=== PATIENT | female | born 1985 | race Caucasian/White ===

== ENCOUNTER 2019-06-28 18:56 | Inpatient (IN) | payer OTHER ==
[~2019-06-28] VITALS: Ht 165.1 cm; Wt 101.0 kg
[~2019-06-28 18:56] MED LIST: DEPO PROVERA; NO MEDS; OXYACE5T PO
[2019-06-28 21:36] LABS: BASOPHILS ABSOLUTE AUTO 0.08 K/mm3 (0.00-0.23); BASOPHILS PERCENT AUTO 1 % (0-2); EOSINOPHILS ABSOLUTE AUTO 0.24 K/mm3 (0.00-0.68); EOSINOPHILS PERCENT AUTO 2 % (0-6); Hematocrit 47.6 % (33.0-51.0); Hemoglobin 15.3 g/dL (11.5-16.0); IMMATURE GRAN ABSOLUTE AUTO 0.06 K/mm3 (0.00-0.10); IMMATURE GRAN PERCENT AUTO 1 % (0-1); LYMPHOCYTES ABSOLUTE AUTO 3.19 K/mm3 (0.84-5.20); LYMPHOCYTES PERCENT AUTO 27 % (21-46); MONOCYTES ABSOLUTE AUTO 0.75 K/mm3 (0.16-1.47); MONOCYTES PERCENT AUTO 6 % (4-13); Mean Corpuscular HGB 29.8 pg (26.0-34.0); Mean Corpuscular HGB Conc 32.1 g/dL (31.5-36.5); Mean Corpuscular Volume 93 fL (80-100); NEUTROPHILS ABSOLUTE AUTO 7.68 K/mm3 (1.96-9.15); NEUTROPHILS PERCENT AUTO 64 % (41-73); Platelet Count 264 K/mm3 (150-400); RDW Coefficient Variation 13.7 % (11.7-14.2); RDW Standard Deviation 47.3 fL (35.1-46.3); Red Blood Cell Count 5.14 M/mm3 (3.80-5.20)
[2019-06-28] MEDS ORDERED: IBUP800 PO (21:51)
[2019-06-28] MEDS ORDERED: CLIN300 PO (21:51)
[2019-06-28 21:52] LABS: Alanine Aminotransfer (ALT/SGP 149 U/L (12-78); Albumin, Blood 3.9 g/dL (3.4-5.0); Alk Phos 190 U/L (50-136); Anion Gap 6 mmol/L (6-16); Aspartate Aminotrans (AST/SGOT 104 U/L (12-37); Bilirubin, Total 0.5 mg/dL (0.1-1.0); Blood Urea Nitrogen 5 mg/dL (8-24); Bun/Creatinine Ratio 6.7 (12.0-20.0); CO2, Blood 27 mmol/L (21-32); Chloride, Blood 107 mmol/L (98-108); Creatinine, Blood 0.75 mg/dL (0.40-1.00); Globulin, Blood 3.8 g/dL (2.2-4.0); Glomerular Filtration Rate >60 (60-); Glucose, Blood 85 mg/dL (70-99); Sodium, Blood 140 mmol/L (136-145); Total Protein, Blood 7.7 g/dL (6.4-8.2)
[2019-06-29 05:08] LABS: BASOPHILS ABSOLUTE AUTO 0.05 K/mm3 (0.00-0.23); BASOPHILS PERCENT AUTO 1 % (0-2); EOSINOPHILS PERCENT AUTO 4 % (0-6); Hematocrit 40.1 % (33.0-51.0); Hemoglobin 12.8 g/dL (11.5-16.0); IMMATURE GRAN ABSOLUTE AUTO 0.03 K/mm3 (0.00-0.10); IMMATURE GRAN PERCENT AUTO 0 % (0-1); LYMPHOCYTES ABSOLUTE AUTO 3.17 K/mm3 (0.84-5.20); LYMPHOCYTES PERCENT AUTO 37 % (21-46); MONOCYTES ABSOLUTE AUTO 0.64 K/mm3 (0.16-1.47); MONOCYTES PERCENT AUTO 7 % (4-13); Mean Corpuscular HGB 29.8 pg (26.0-34.0); Mean Corpuscular HGB Conc 31.9 g/dL (31.5-36.5); Mean Corpuscular Volume 94 fL (80-100); NEUTROPHILS ABSOLUTE AUTO 4.47 K/mm3 (1.96-9.15); NEUTROPHILS PERCENT AUTO 52 % (41-73); Platelet Count 221 K/mm3 (150-400); RDW Standard Deviation 47.9 fL (35.1-46.3); Red Blood Cell Count 4.29 M/mm3 (3.80-5.20); White Blood Cell Count 8.66 K/mm3 (4.00-11.30)
[2019-06-29 05:38] LABS: Alanine Aminotransfer (ALT/SGP 98 U/L (12-78); Albumin, Blood 2.8 g/dL (3.4-5.0); Albumin/Globulin Ratio 0.9 (0.8-1.8); Alk Phos 135 U/L (50-136); Anion Gap 3 mmol/L (6-16); Aspartate Aminotrans (AST/SGOT 57 U/L (12-37); Bilirubin, Total 0.5 mg/dL (0.1-1.0); Blood Urea Nitrogen 6 mg/dL (8-24); Bun/Creatinine Ratio 8.3 (12.0-20.0); CO2, Blood 27 mmol/L (21-32); Calcium, Blood 7.9 mg/dL (8.5-10.1); Chloride, Blood 113 mmol/L (98-108); Creatinine, Blood 0.72 mg/dL (0.40-1.00); Glomerular Filtration Rate >60 (60-); Glucose, Blood 97 mg/dL (70-99); Potassium, Blood 3.8 mmol/L (3.5-5.5); Sodium, Blood 143 mmol/L (136-145); Total Protein, Blood 5.8 g/dL (6.4-8.2)
--- NOTE | 2019-06-29 07:12 | NUR ---
arrived from ER with swollen L ankle, stable but tired, d5w infusing into 20g, room air, call light in reach, bsr shared with day staff, discussed consult and possible procedures
--- NOTE | 2019-06-29 14:27 | NUR ---
PATIENT READY IN ROOM. INTO HOSPITAL GOWN AND URINE SPECIMEN FOR PREGANANCY TEST OBTAINED. PATIENT WILL WAIT TO TAKE HER PAJAMA BOTTOMS OFF WHEN SHE IS PICKED UP FOR SURGERY. ESTIMATE OF TIMEFRAME FOR ANTICIPATED SURGERY GIVEN PER PATIENT REQUEST AND PATIENT STATES AWARE THAT THIS IS AN ESTIMATED TIMEFRAME.
--- NOTE | 2019-06-29 18:29 | NUR ---
PATIENT WAS ALERT AND ORIENTED THROUGHOUT THE DAY. COMPLAINED OF NAUSEA TWICE, TREATED PER EMAR. FAMILY WAS AT THE BEDSIDE PERIODICALLY. PATIENT TRANSFERRED FROM THE BED TO THE BATHROOM USING A WALKER. PATIENT IS NOW IN THE OR HAVING SURGERY DONE ON HER RIGHT ANKLE. WILL GIVE REPORT TO THE ONCOMING RN.
--- NOTE | 2019-06-30 04:32 | NUR ---
PT ARRIVED TO THE FLOOR ALERT AND ORIENTED. VSS. PAIN MEDICATION WAS GIVEN ORDERED THROUGHOUT THE NIGHT. PAIN WAS WELL MANAGED. PT WAS UP TO THE TOILET, KEEPING WEIGHT OFF OF RIGHT FOOT. STANDBY ASSIST WAS ALL THAT WAS NEEDED. NO OTHER COMPLAINTS AT THIS TIME. WILL CONTINUE TO MONITOR PT.
[2019-06-30 05:56] LABS: BASOPHILS ABSOLUTE AUTO 0.04 K/mm3 (0.00-0.23); BASOPHILS PERCENT AUTO 1 % (0-2); EOSINOPHILS ABSOLUTE AUTO 0.24 K/mm3 (0.00-0.68); EOSINOPHILS PERCENT AUTO 3 % (0-6); Hematocrit 39.3 % (33.0-51.0); Hemoglobin 12.6 g/dL (11.5-16.0); IMMATURE GRAN ABSOLUTE AUTO 0.04 K/mm3 (0.00-0.10); IMMATURE GRAN PERCENT AUTO 1 % (0-1); LYMPHOCYTES ABSOLUTE AUTO 1.98 K/mm3 (0.84-5.20); LYMPHOCYTES PERCENT AUTO 22 % (21-46); MONOCYTES ABSOLUTE AUTO 0.59 K/mm3 (0.16-1.47); MONOCYTES PERCENT AUTO 7 % (4-13); Mean Corpuscular HGB 29.3 pg (26.0-34.0); Mean Corpuscular HGB Conc 32.1 g/dL (31.5-36.5); Mean Platelet Volume 11.2 fL (9.1-12.4); NEUTROPHILS ABSOLUTE AUTO 5.99 K/mm3 (1.96-9.15); NEUTROPHILS PERCENT AUTO 67 % (41-73); Platelet Count 227 K/mm3 (150-400); RDW Coefficient Variation 13.9 % (11.7-14.2); RDW Standard Deviation 46.9 fL (35.1-46.3); White Blood Cell Count 8.88 K/mm3 (4.00-11.30)
[2019-06-30 06:01] LABS: Mean Corpuscular Volume 91 fL (80-100)
[2019-06-30 06:16] LABS: Anion Gap 3 mmol/L (6-16); Blood Urea Nitrogen 6 mg/dL (8-24); Bun/Creatinine Ratio 7.8 (12.0-20.0); CO2, Blood 29 mmol/L (21-32); Chloride, Blood 107 mmol/L (98-108); Creatinine, Blood 0.77 mg/dL (0.40-1.00); Glomerular Filtration Rate >60 (60-); Glucose, Blood 107 mg/dL (70-99); Magnesium, Blood 1.8 mg/dL (1.6-2.4); Potassium, Blood 3.9 mmol/L (3.5-5.5); Sodium, Blood 139 mmol/L (136-145)
[2019-06-30 09:38] LABS: Vancomycin, Trough 8.4 ug/mL (5.0-10.0)
--- NOTE | 2019-06-30 14:11 | NUR ---
REPORT CALLED TO SURGICAL FLOOR RN. PT STABLE UPON TRANSFER AND ALL BELONGINGS SENT WITH PT.
--- NOTE | 2019-06-30 18:09 | NUR ---
SHIFT SUMMARY PT A&OX4, VSS, POD1 I&D, SPLINT W/VISHAL WRAP CDI, ELEVATED, LLE NWB. UP TO CHAIR. AMB W/FWW & GB TO BRP. VOIDING WELL. PAIN MANAGED WITH 5 MG NORCO Q4. JORDAN PO; OCC NAUSEA TX'D WITH ZOFRAN X1. IVF INFUSING W/SCHEDULED ABX. WCTM & TX PER EMAR UNTIL REPORT GIVEN TO ONCOMING REYES ORDONEZ.
--- NOTE | 2019-07-01 05:54 | NUR ---
SHIFT SUMMARY PT POD#2 I+D LEFT ANKLE. AAOX4/ANXIOUS AT TIMES. DISCOMFORT CONTROLLED WITH 5M ROXICODONE Q4H. NAUSEA CONTROLLED WITH ZOFRAN X1 THIS SHIFT, NO EMESIS. IV TO LEFT AC RECENTLY INFILTRATED AND WITH PT NEEDING PICC LINE PLACEMENT, WILL CONTACT NURSING ORNAMENTAL PAINTER FOR PICC NURSE AVAILABILITY. DRESSING TO LLE C/D/I + ELEVATED ON PILLOWS. MOVES TOES WELL, CAP REFILL BRISK, TINGLING AT BASELINE PER PT WITH HX NEUROPATHY. UP TO RESTROOM WITH FWW SBA, TOLERATES WELL. GOOD PO INTAKE + OUTPUT. PT RESTING AT THIS TIME POST IV DC. CALL LIGHT IN REACH.
--- NOTE | 2019-07-01 20:34 | NUR ---
SHIFT SUMMARY PT A&OX4, VSS, POD2 I&D LLE, DRESSING CHANGED BY SG TODAY, SPLINT ON, ELEVATED, NWB. PAIN MANAGED WITH 5 MG OXY Q4. JORDAN PO, OCC N&V TX'D WITH ZOFRAN. AMB SBA W/FWW TO BRP & CHAIR. VOIDING WELL. PICC LINE PLACED TODAY LUE. REPORT GIVEN TO SAVANNAH ORDONEZ.
[2019-07-02 04:39] LABS: BASOPHILS ABSOLUTE AUTO 0.05 K/mm3 (0.00-0.23); BASOPHILS PERCENT AUTO 0 % (0-2); EOSINOPHILS ABSOLUTE AUTO 0.48 K/mm3 (0.00-0.68); EOSINOPHILS PERCENT AUTO 4 % (0-6); IMMATURE GRAN ABSOLUTE AUTO 0.08 K/mm3 (0.00-0.10); IMMATURE GRAN PERCENT AUTO 1 % (0-1); LYMPHOCYTES ABSOLUTE AUTO 2.94 K/mm3 (0.84-5.20); LYMPHOCYTES PERCENT AUTO 25 % (21-46); MONOCYTES ABSOLUTE AUTO 0.93 K/mm3 (0.16-1.47); MONOCYTES PERCENT AUTO 8 % (4-13); Mean Corpuscular HGB 29.3 pg (26.0-34.0); Mean Corpuscular HGB Conc 31.7 g/dL (31.5-36.5); Mean Corpuscular Volume 93 fL (80-100); Mean Platelet Volume 11.2 fL (9.1-12.4); NEUTROPHILS PERCENT AUTO 62 % (41-73); Platelet Count 244 K/mm3 (150-400); RDW Standard Deviation 47.8 fL (35.1-46.3); Red Blood Cell Count 4.43 M/mm3 (3.80-5.20); White Blood Cell Count 11.68 K/mm3 (4.00-11.30)
[2019-07-02 05:05] LABS: Alanine Aminotransfer (ALT/SGP 168 U/L (12-78); Albumin, Blood 2.9 g/dL (3.4-5.0); Albumin/Globulin Ratio 0.8 (0.8-1.8); Alk Phos 205 U/L (50-136); Anion Gap 5 mmol/L (6-16); Aspartate Aminotrans (AST/SGOT 51 U/L (12-37); Bilirubin, Total 0.6 mg/dL (0.1-1.0); Blood Urea Nitrogen 4 mg/dL (8-24); Bun/Creatinine Ratio 5.8 (12.0-20.0); CO2, Blood 27 mmol/L (21-32); Calcium, Blood 8.5 mg/dL (8.5-10.1); Chloride, Blood 107 mmol/L (98-108); Creatinine, Blood 0.68 mg/dL (0.40-1.00); Globulin, Blood 3.5 g/dL (2.2-4.0); Glomerular Filtration Rate >60 (60-); Glucose, Blood 90 mg/dL (70-99); Potassium, Blood 4.2 mmol/L (3.5-5.5); Sodium, Blood 139 mmol/L (136-145); Total Protein, Blood 6.4 g/dL (6.4-8.2)
--- NOTE | 2019-07-02 05:28 | NUR ---
SHIFT SUMMARY PT POD#3. AAOX4. DISCOMFORT CONTROLLED WITH 5MG ROXICODONE Q4H. NAUSEA CONTROLLED WITH ZOFRAN, NO EMESIS. DRESSING TO LLE C/D/I. VISHAL WRAP ADJUSTED THIS SHIFT FOR COMFORT. PT UP TO RESTROOM SBA WITH FWW. IVF + ABX INFUSING PER ORDERS. NADN. PT RESTING AT THIS TIME. AWAITING REDDING CONSULT.
[2019-07-02 12:45] LABS: Vancomycin, Trough 12.3 ug/mL (5.0-10.0)
--- NOTE | 2019-07-02 14:46 | NUR ---
SPOKE WITH DR. HANLEY AND LET HER KNOW THAT DR. REDDING HAS SEEN PT AT THIS TIME.
[2019-07-02] MEDS ORDERED: PROBIOTIC ACID1.5 MG PO (15:54)
[2019-07-02] MEDS ORDERED: Bactrim Ds Tab1 EACH PO (15:55)
[2019-07-02] MEDS ORDERED: BISA5EC PO (15:56)
[2019-07-02] MEDS ORDERED: BENADRYL25 MG PO (15:56)
[2019-07-02] MEDS ORDERED: OXYC5 PO (15:56)
--- NOTE | 2019-07-02 17:00 | NUR ---
DISCHARGE: DISCHARGE PAPERWORK AND EDUCATION GIVEN TO PT. SCRIPT CALLED TO PHARMACY AND NARCOTIC SCRIPT SENT WITH PT. RE -WRAPED PT WOUND WITH VISHAL. PICC LINE DC'D BY DIMPLING MACHINE OPERATOR. PT VERBILIZED UNDERSTANDING OF INSTUCTIONS. LEFT UNIT VIA WC AT [id number] WITH .
== END 2019-07-02 16:56 | disposition home or self-care (01) | DRG 863 ==
LOC: ER 18:56 → MEDS 22:45 → SURS 06-30 14:13
PROVIDERS: Emergency Medicine; Internal Medicine; Orthopaedic Surgery; ADMIT Internal Medicine
PROC: 0JDR3ZZ Extraction of Left Foot Subcutaneous Tissue and Fascia, Percutaneous Approach (ICD-10-PCS; principal; 2019-06-29 17:30)
DX: T81.42XA Infection following a procedure, deep incisional surgical site, initial encounter (principal); G62.9 Polyneuropathy, unspecified; F17.210 Nicotine dependence, cigarettes, uncomplicated; V48.1XXA Car passenger injured in noncollision transport accident in nontraffic accident, initial encounter; A49.02 Methicillin resistant Staphylococcus aureus infection, unspecified site; E66.9 Obesity, unspecified; Z68.37 Body mass index [BMI] 37.0-37.9, adult; S82.402A Unspecified fracture of shaft of left fibula, initial encounter for closed fracture
CPT/HCPCS: 36415; 36569; 73590; 73701; 80048; 80053; 80202; 81025; 83605; 83735; 85025; 85651; 86140; 87040; 87071; 87075; 87077; 87147; 87186; 87205; 96365; 96366; 97116; 97162; 99284-25; C1751; J0330; J1650; J1956; J2270; J2370; J2405; J2543; J2704; J3010; J3370; J7030; J7050; Q0163; Q9967

== ENCOUNTER 2022-09-03 15:57 | Observation (INO) | payer OTHER ==
[~2022-09-03] VITALS: Ht 160 cm; Wt 106.6 kg
[~2022-09-03 15:57] MED LIST changes: +BENADRYL25 MG PO; +BISA5EC PO; +Bactrim Ds Tab1 EACH PO; +CLIN300 PO; +IBUP800 PO; +OXYC5 PO; +PROBIOTIC ACID1.5 MG PO
[2022-09-03 17:17] LABS: Source, Urine Clean Catch
[2022-09-03 17:21] LABS: BASOPHILS ABSOLUTE AUTO 0.07 K/mm3 (0.00-0.23); BASOPHILS PERCENT AUTO 1 % (0-2); EOSINOPHILS ABSOLUTE AUTO 0.09 K/mm3 (0.00-0.68); EOSINOPHILS PERCENT AUTO 1 % (0-6); Hematocrit 44.2 % (33.0-51.0); Hemoglobin 14.8 g/dL (11.5-16.0); IMMATURE GRAN ABSOLUTE AUTO 0.05 K/mm3 (0.00-0.10); IMMATURE GRAN PERCENT AUTO 0 % (0-1); LYMPHOCYTES ABSOLUTE AUTO 2.49 K/mm3 (0.84-5.20); LYMPHOCYTES PERCENT AUTO 22 % (21-46); MONOCYTES PERCENT AUTO 6 % (4-13); Mean Corpuscular HGB 29.3 pg (26.0-34.0); Mean Corpuscular HGB Conc 33.5 g/dL (31.5-36.5); Mean Corpuscular Volume 88 fL (80-100); Mean Platelet Volume 10.4 fL (9.1-12.4); NEUTROPHILS ABSOLUTE AUTO 7.75 K/mm3 (1.96-9.15); NEUTROPHILS PERCENT AUTO 70 % (41-73); Platelet Count 297 K/mm3 (150-400); RDW Coefficient Variation 14.3 % (11.7-14.2); RDW Standard Deviation 45.8 fL (35.1-46.3); Red Blood Cell Count 5.05 M/mm3 (3.80-5.20); White Blood Cell Count 11.15 K/mm3 (4.00-11.30)
[2022-09-03 17:25] LABS: Appearance, Urine Cloudy (Clear); Bilirubin, Urine Neg (Neg); Blood, Urine 4+ (Neg); Color, Urine Yellow (P-Yellow); Glucose Qualitative, Urine Neg (Neg); Ketones, Urine 1+ (Neg); Leukocyte Esterase, Urine 2+ (Neg); Nitrite, Urine Pos (Neg); Protein, Urine 2+ (Neg); Specific Gravity, Urine 1.025 (1.003-1.022); Urobilinogen, Urine NORM (Normal)
[2022-09-03 17:44] LABS: U Amphetamine Screen DETECTED; U Barbituate Screen Not Detected; U Benzodiazapine Screen Not Detected; U Buprenorphine Screen Not Detected; U Cannabinoids Screen DETECTED; U Cocaine Screen Not Detected; U Methadone Screen Not Detected; U Methamphetamine Screen DETECTED; U Opiates Screen Not Detected; U Oxycodone Screen Not Detected; U Phencyclidine Screen Not Detected; U Propoxyphene Screen Not Detected
[2022-09-03 17:45] LABS: Amorphous Light (0-Heavy); Bacteria Many /hpf; Mucus Mod (0-Heavy); Red Blood Cells, Urine 0-2 /hpf (0-2); Squamous Epithelial Cells Many /hpf (Few)
[2022-09-03 17:46] LABS: Hyaline Casts 0-2 /lpf (0-2); Transitional Epithelial Cells Rare /hpf (0-Rare)
[2022-09-03 17:47] LABS: Salicylate 2.9 mg/dL (2.8-20.0); Thyroxine (T4) 10.8 ug/dL (4.8-13.9)
[2022-09-03 17:53] LABS: Ethanol (Alcohol), Blood, Med <3 mg/dL
[2022-09-03 17:55] LABS: Alanine Aminotransfer (ALT/SGP 29 U/L (12-78); Albumin, Blood 3.9 g/dL (3.4-5.0); Albumin/Globulin Ratio 1.2 (0.8-1.8); Alk Phos 82 U/L (50-136); Anion Gap 3 mmol/L (6-16); Aspartate Aminotrans (AST/SGOT 17 U/L (12-37); Blood Urea Nitrogen 8 mg/dL (8-24); Bun/Creatinine Ratio 9.9 (12.0-20.0); CO2, Blood 27 mmol/L (21-32); Calcium, Blood 9.4 mg/dL (8.5-10.1); Chloride, Blood 110 mmol/L (98-108); Creatinine, Blood 0.81 mg/dL (0.40-1.00); Globulin, Blood 3.3 g/dL (2.2-4.0); Glomerular Filtration Rate 95 (60-); Glucose, Blood 90 mg/dL (70-99); Potassium, Blood 3.8 mmol/L (3.5-5.5); Sodium, Blood 140 mmol/L (136-145); Total Protein, Blood 7.2 g/dL (6.4-8.2)
[2022-09-03 17:56] LABS: Acetaminophen, Random <2.0 ug/mL (10.0-30.0)
[2022-09-03 18:03] LABS: Influenza A, PCR NEGATIVE (NEGATIVE); Influenza B, PCR NEGATIVE (NEGATIVE); Resp Syncytial Virus, PCR NEGATIVE (NEGATIVE); SARS-Cov-2 (COVID-19) PCR, MMC NEGATIVE (NEGATIVE)
== END 2022-09-04 23:07 ==
LOC: ER 15:57 → EOR 15:58
PROVIDERS: Physician Assistant; ADMIT Student in an Organized Health Care Education/Training Program
DX: F32.A Depression, unspecified (principal); Z88.0 Allergy status to penicillin; Z88.5 Allergy status to narcotic agent; Z88.8 Allergy status to other drugs, medicaments and biological substances; Z20.822 Contact with and (suspected) exposure to COVID-19
CPT/HCPCS: 0241U; 36415; 80053; 81001; 81025; 84436; 85025; 87077; 87086; 87186; 99285; A9270; G0378; G0480; Q3014

== ENCOUNTER → 2023-05-12 | Outpatient (CLI) | payer OTHER | END | disposition home or self-care (01) | LOC: LAB 11:58 → LAB SHORT 11:58 | DX: R22.40 Localized swelling, mass and lump, unspecified lower limb (principal) | CPT/HCPCS: 85379 ==